=== PATIENT | male | born 1935 | race Caucasian/White ===

== ENCOUNTER 2018-06-26 12:19 | Inpatient (IN) ==
[2018-06-26 17:14] VITALS: BMI 30.4
[2018-06-26 18:21] LABS: BASOPHILS # (AUTO) 0.1 X10^3/uL (0.0-0.1); BASOPHILS % (AUTO) 0.8 % (0.2-1.0); EOSINOPHILS # (AUTO) 0.3 x10^3/uL (0.0-0.2); HEMATOCRIT 38.8 % (42.0-54.0); HEMOGLOBIN 12.7 g/dL (13.5-18.0); LYMPHOCYTES # (AUTO) 3.1 X10^3/uL (1.3-2.9); LYMPHOCYTES % (AUTO) 42.7 % (21.0-51.0); MEAN CORPUSCULAR HEMOGLOBIN 32.1 pg (27.0-34.0); MEAN CORPUSCULAR HGB CONC 32.8 g/dL (33.0-35.0); MEAN CORPUSCULAR VOLUME 97.9 fL (80.0-100.0); MEAN PLATELET VOLUME 8.6 fL (7.4-11.0); MONOCYTES # (AUTO) 0.7 x10^3/uL (0.3-0.8); MONOCYTES % (AUTO) 9.6 % (0.0-13.0); NEUTROPHILS # (AUTO) 3.1 x10^3/uL (2.2-4.8); NEUTROPHILS % (AUTO) 42.9 % (42.0-75.0); PLATELET COUNT 218 X10^3/uL (150.0-450.0); RED BLOOD COUNT 3.96 X10^6/uL (4.7-6.0); RED CELL DISTRIBUTION WIDTH 15.5 % (11.6-16.5); WHITE BLOOD COUNT 7.2 X10^3/uL (3.6-10.0)
--- NOTE | 2018-06-26 18:26 | RAD ---
HISTORY: Exposure to elements Study: Single view of the chest. Comparison: None. Findings: The cardiomediastinal silhouette is normal. No focal consolidations, pleural effusions or pneumothorax. Osseous structures demonstrate no acute abnormality. IMPRESSION: 1. No acute cardiopulmonary process. Reported By:
[2018-06-26 19:05] LABS: ALANINE AMINOTRANSFERASE 18 Units/L (12-78); ALBUMIN 3.3 g/dL (3.4-5.0); ALKALINE PHOSPHATASE 86 Units/L (46-116); ASPARTATE AMINO TRANSFERASE 28 Units/L (15-37); BLOOD UREA NITROGEN 28 mg/dL (7-18); CALCIUM 8.8 mg/dL (8.5-10.1); CARBON DIOXIDE 26.6 mmol/L (21-32); CHLORIDE 108 mmol/L (98-107); CKMB % 1.6 % (<4); COR CA(FOR HYPOALB) 9.4 mg/dL (8.5-10.1); COR NA(FOR HYPERGLY) 147 mmol/L (136-145); CREATINE KINASE 264 Units/L (39-308); CREATININE 1.41 mg/dL (0.70-1.30); SODIUM 143 mmol/L (136-145); TOTAL PROTEIN 6.9 g/dL (6.4-8.2); TROPONIN I 0.02 ng/mL (0-1.5); eGFR NON BLACK RACES 51 (>60)
[2018-06-26] MEDS: NS 1000 ML 1,000 ML IV SCH (19:09)
[2018-06-26 19:10] LABS: CREATINE KINASE MB 4.1 ng/mL (0-4.0)
[2018-06-26 21:11] LABS: BILIRUBIN,URINE NEGATIVE (NEGATIVE); BLOOD/HEMOGLOBIN,URINE 2+ (NEGATIVE); GLUCOSE, URINE 3+ (NEGATIVE); KETONES,URINE NEGATIVE (NEGATIVE); LEUKOCYTE ESTERASE ,URINE 3+ (NEGATIVE); NITRITES,URINE NEGATIVE (NEGATIVE); PROTEIN,URINE 3+ (NEGATIVE); UROBILINOGEN,URINE NORMAL (NORMAL)
[2018-06-26 21:16] LABS: APPEARANCE,URINE HAZY (CLEAR); COLOR,URINE YELLOW (YELLOW)
[2018-06-26 21:17] LABS: BACTERIA,URINE TRACE /HPF (NEGATIVE); SQUAMOUS EPITHELIAL CELL,UR FEW /HPF (NEGATIVE)
[2018-06-27 06:04] LABS: BASOPHILS % (AUTO) 0.6 % (0.2-1.0); EOSINOPHILS # (AUTO) 0.3 x10^3/uL (0.0-0.2); EOSINOPHILS % (AUTO) 4.2 % (0.9-2.9); HEMATOCRIT 37.7 % (42.0-54.0); HEMOGLOBIN 12.7 g/dL (13.5-18.0); LYMPHOCYTES # (AUTO) 3.2 X10^3/uL (1.3-2.9); LYMPHOCYTES % (AUTO) 42.4 % (21.0-51.0); MEAN CORPUSCULAR HEMOGLOBIN 32.6 pg (27.0-34.0); MEAN CORPUSCULAR HGB CONC 33.6 g/dL (33.0-35.0); MEAN CORPUSCULAR VOLUME 97.2 fL (80.0-100.0); MEAN PLATELET VOLUME 8.7 fL (7.4-11.0); MONOCYTES # (AUTO) 0.8 x10^3/uL (0.3-0.8); MONOCYTES % (AUTO) 10.2 % (0.0-13.0); NEUTROPHILS # (AUTO) 3.2 x10^3/uL (2.2-4.8); NEUTROPHILS % (AUTO) 42.6 % (42.0-75.0); PLATELET COUNT 210 X10^3/uL (150.0-450.0); RED BLOOD COUNT 3.88 X10^6/uL (4.7-6.0); RED CELL DISTRIBUTION WIDTH 15.2 % (11.6-16.5); WHITE BLOOD COUNT 7.4 X10^3/uL (3.6-10.0)
[2018-06-27 06:11] LABS: ALANINE AMINOTRANSFERASE 27 Units/L (12-78); ALBUMIN 3.2 g/dL (3.4-5.0); ALKALINE PHOSPHATASE 70 Units/L (46-116); ASPARTATE AMINO TRANSFERASE 28 Units/L (15-37); BLOOD UREA NITROGEN 27 mg/dL (7-18); CALCIUM 8.8 mg/dL (8.5-10.1); CARBON DIOXIDE 28.3 mmol/L (21-32); CHLORIDE 110 mmol/L (98-107); CKMB % 1.3 % (<4); COR CA(FOR HYPOALB) 9.4 mg/dL (8.5-10.1); COR NA(FOR HYPERGLY) 147 mmol/L (136-145); CREATINE KINASE 249 Units/L (39-308); CREATINE KINASE MB 3.2 ng/mL (0-4.0); CREATININE 1.33 mg/dL (0.70-1.30); SODIUM 146 mmol/L (136-145); TOTAL PROTEIN 6.7 g/dL (6.4-8.2); TROPONIN I 0.03 ng/mL (0-1.5); eGFR NON BLACK RACES 55 (>60)
[2018-06-27] MEDS: NS 1000 ML 1,000 ML IV SCH (06:13)
[2018-06-27] MEDS: ROCEPHIN VIAL 1 GRAM IVP SCH (10:57)
[2018-06-27] MEDS ORDERED: ULTRAM PO PRN (13:31)
[2018-06-27] MEDS ORDERED: CARBIDOPA LEVODOPA PO SCH (13:45)
[2018-06-27] MEDS: LOPRESSOR TAB 50 MG PO SCH ×2 (13:51→20:32)
[2018-06-27] MEDS: PriLOSEC PO SCH (13:54)
[2018-06-27] MEDS: FLOMAX PO SCH (13:54)
[2018-06-27] MEDS: TRICOR TAB 145 MG PO SCH (13:54)
[2018-06-27] MEDS: LYRICA CAP 75 MG PO SCH ×2 (13:54→20:32)
[2018-06-27] MEDS: CRESTOR TAB 10 MG PO SCH (13:54)
[2018-06-27] MEDS: CLARITIN PO SCH (13:54)
[2018-06-27] MEDS: SINEMET (PLAIN) 25/250 MG PO SCH ×2 (16:37→20:32)
[2018-06-27] MEDS ORDERED: NS 1/2 1000 ML IV 1,000 ML IV ONE (20:03)
[2018-06-27] MEDS: NS 1/2 1000 ML IV 1,000 ML IV SCH (20:31)
[2018-06-27] MEDS: ZYLOPRIM PO SCH (20:32)
[2018-06-27] MEDS: ARICEPT TAB 5 MG PO SCH (20:32)
[2018-06-27] MEDS: TRIHEXYPHENIDYL 2 MG PO SCH (20:32)
[2018-06-28 06:13] LABS: BASOPHILS % (AUTO) 0.5 % (0.2-1.0); EOSINOPHILS # (AUTO) 0.3 x10^3/uL (0.0-0.2); EOSINOPHILS % (AUTO) 5.7 % (0.9-2.9); HEMATOCRIT 34.6 % (42.0-54.0); HEMOGLOBIN 11.6 g/dL (13.5-18.0); LYMPHOCYTES # (AUTO) 2.3 X10^3/uL (1.3-2.9); LYMPHOCYTES % (AUTO) 39.6 % (21.0-51.0); MEAN CORPUSCULAR HEMOGLOBIN 32.5 pg (27.0-34.0); MEAN CORPUSCULAR HGB CONC 33.5 g/dL (33.0-35.0); MEAN CORPUSCULAR VOLUME 97.2 fL (80.0-100.0); MEAN PLATELET VOLUME 8.8 fL (7.4-11.0); MONOCYTES # (AUTO) 0.6 x10^3/uL (0.3-0.8); MONOCYTES % (AUTO) 10.6 % (0.0-13.0); NEUTROPHILS # (AUTO) 2.5 x10^3/uL (2.2-4.8); NEUTROPHILS % (AUTO) 43.6 % (42.0-75.0); PLATELET COUNT 196 X10^3/uL (150.0-450.0); RED BLOOD COUNT 3.56 X10^6/uL (4.7-6.0); RED CELL DISTRIBUTION WIDTH 15.5 % (11.6-16.5); WHITE BLOOD COUNT 5.8 X10^3/uL (3.6-10.0)
[2018-06-28 06:22] LABS: ALANINE AMINOTRANSFERASE 9 Units/L (12-78); ALBUMIN 2.8 g/dL (3.4-5.0); ALKALINE PHOSPHATASE 61 Units/L (46-116); ASPARTATE AMINO TRANSFERASE 28 Units/L (15-37); BLOOD UREA NITROGEN 24 mg/dL (7-18); CALCIUM 8.6 mg/dL (8.5-10.1); CARBON DIOXIDE 26.3 mmol/L (21-32); CHLORIDE 109 mmol/L (98-107); COR CA(FOR HYPOALB) 9.6 mg/dL (8.5-10.1); COR NA(FOR HYPERGLY) 146 mmol/L (136-145); SODIUM 144 mmol/L (136-145); TOTAL PROTEIN 6.1 g/dL (6.4-8.2); eGFR NON BLACK RACES > 60 (>60)
[2018-06-28] MEDS: PriLOSEC PO SCH (08:14)
[2018-06-28] MEDS: ROCEPHIN VIAL 1 GRAM IVP SCH (08:14)
[2018-06-28] MEDS: CRESTOR TAB 10 MG PO SCH (08:14)
[2018-06-28] MEDS: FLOMAX PO SCH (08:14)
[2018-06-28] MEDS: COLACE CAP 100 MG PO SCH (08:14)
[2018-06-28] MEDS: LOPRESSOR TAB 50 MG PO SCH ×2 (08:14→22:14)
[2018-06-28] MEDS: TRICOR TAB 145 MG PO SCH (08:15)
[2018-06-28] MEDS: CLARITIN PO SCH (08:15)
[2018-06-28] MEDS: SINEMET (PLAIN) 25/250 MG PO SCH ×4 (08:15→21:03)
[2018-06-28] MEDS: LYRICA CAP 75 MG PO SCH ×2 (08:15→21:02)
[2018-06-28] MEDS: ZYLOPRIM PO SCH ×2 (08:15→21:03)
[2018-06-28] MEDS ORDERED: ROTIGOTINE 1 MG Transdermal SCH (09:00)
--- NOTE | 2018-06-28 10:05 | DR.H&P ---
H&P - History & Physical for Day of: H&P Date: 06/26/18 - Chief Complaint Chief Complaint: Dementia, Wandered off during night, more confused - History of Present Illness History of Present Illness: The patient is an 83-year-old white male who presents to the office with his sister secondary to having wandered off during the night. States that she found them medicine about 3 AM and 911 was called. Deputies found him at 5 AM in a jacket and diaper with no shoes on. Has multiple ant bites to both feet. Patient has dementia. is currently hospitalized. Sister states that he has been more confused and restless. States it's getting to the point that there are no longer able to provide care for him safely. Patient does respond to simple commands. Discussed with sister placement options. - Past Medical History Past Medical History: Coronary Artery Disease, Dementia, Dyslipidemia - Past Surgical History Surgical History: CABG/Valve Surgery - Social History Does patient currently use any type of tobacco product: No Have you used tobacco products in the last 12 months: No Type of Tobacco Use: None Does any household member use tobacco: No Alcohol Use: None Drug Use: None - Medications Home Medications: mushroom Allergy (Verified 06/26/18 17:20) CONTINUE taking the following medications allopurinol [Zyloprim] 300 mg PO BID 06/26/18 [History] carbidopa-levodopa [Sinemet] 1 tab PO QID 06/26/18 [History] docusate sodium [DOK] 200 mg PO DAILY 06/26/18 [History] donepezil [Aricept] 5 mg PO HS 06/26/18 [History] fenofibrate nanocrystallized [Tricor] 145 mg PO DAILY 06/26/18 [History] loratadine [Claritin Liqui-Gel] 10 mg PO QDAY 06/26/18 [History] metoprolol tartrate [Lopressor] 50 mg PO BID 06/26/18 [History] omeprazole 40 mg PO DAILY 06/26/18 [History] pregabalin [Lyrica] 75 mg PO BID 06/26/18 [History] rosuvastatin [Crestor] 10 mg PO DAILY 06/26/18 [History] rotigotine [Neupro] 1 mg TRANSDERMAL DAILY 06/26/18 [History] tamsulosin [Flomax] 0.4 mg PO DAILY 06/26/18 [History] tramadol [Ultram] 50 mg PO Q6H PRN 06/26/18 [History] trihexyphenidyl 2 mg PO QID 06/26/18 [History] - Review of Systems Constitutional: See HPI, Malaise Eyes: No Symptoms Reported ENT: No Symptoms Reported Respiratory: No Symptoms Reported Cardiovascular: No Symptoms Reported Gastrointestinal: No Symptoms Reported Genitourinary: No Symptoms Reported Musculoskeletal: No Symptoms Reported Skin: Lesions (Bilateral feet with pustules) - Physical Exam Vital Signs: Temperature 98 F Pulse Rate [Left Radial] 52 Pulse Rate [Right Brachial] 62 Respiratory Rate 18 Blood Pressure [Left Arm] 182/77 Blood Pressure [Right Arm] 200/96 O2 Sat by Pulse Oximetry 94 Oriented: Person Eyes: Normal Ear: Normal Nose: Normal Throat: Normal Respiratory: Clear Throughout Cardiovascular: Normal : Normal Auscultation: Bowel Sounds: Normal Palpation: Normal Tenderness: Normal Skin: Pustular (Bilateral feet with pustules) Musculoskeletal: Normal Psychiatric: Other (dementia) Mood Description: Flat Affect: Flat Speech Pattern: Clear - Assessment/Plan (1) Dementia Qualifiers: Dementia type: Alzheimer's disease Status: Acute Plan: 1. Labs due to expiosure to elements and r/o Rhabdo/UTI (2) Weakness Status: Acute Plan: 1. Labs. 2. Gentle IV Hydration. - Allergies Allergies/Adverse Reactions: Allergies Allergy/AdvReac Type Severity Reaction Status Date / Time mushroom Allergy Verified 06/26/18 17:20
[2018-06-28 13:13] LABS: BILIRUBIN,URINE NEGATIVE (NEGATIVE); BLOOD/HEMOGLOBIN,URINE 1+ (NEGATIVE); GLUCOSE, URINE NEGATIVE (NEGATIVE); KETONES,URINE NEGATIVE (NEGATIVE); LEUKOCYTE ESTERASE ,URINE 2+ (NEGATIVE); NITRITES,URINE NEGATIVE (NEGATIVE); PROTEIN,URINE 3+ (NEGATIVE); UROBILINOGEN,URINE NORMAL (NORMAL)
[2018-06-28 13:19] LABS: APPEARANCE,URINE SLIGHTLY HAZY (CLEAR); COLOR,URINE YELLOW (YELLOW)
[2018-06-28 13:20] LABS: BACTERIA,URINE TRACE /HPF (NEGATIVE); SQUAMOUS EPITHELIAL CELL,UR FEW /HPF (NEGATIVE)
[2018-06-28] MEDS: TRIHEXYPHENIDYL 2 MG PO SCH ×4 (14:25→21:14)
[2018-06-28] MEDS: NS 1/2 1000 ML IV 1,000 ML IV SCH (16:27)
--- NOTE | 2018-06-28 18:53 | PCM.PROG ---
Progress Note - Progress Note for Day of Date of Exam: 06/27/18 - Subjective Subjective: 83 WM ADMITTED ON 06/26 WITH AMS, INCREASED WEAKNESS. PT HAS PMH OF HTN, OA, CAD, DM. PT HAD UTI ON ADMISSION, STARTED ON IV ROCEPHIN WITH CULTURES PENDING. PT FAMILY STATES HE IS MORE WEAK AND FAMILY WANTS PERMANENT [facility] PLACEMENT. PT'S SODIUM SLIGHTLY ELEVATED THIS AM, CHANGED IV FLUIDS TO 1/2 NS AT KVO. WILL REPEAT AM LABS. - Past Medical Family Social History Past Med/Fam/Surg Hx: No changes since H&P Allergies: Allergies mushroom Allergy (Verified 06/26/18 17:20) - Review of Systems ROS: No change since H&P - Vital Signs and I&O's Vital Signs: Temperature 98.6 F Pulse Rate [Left Radial] 60 Pulse Rate [Right Brachial] 62 Respiratory Rate 18 Blood Pressure [Left Arm] 145/67 Blood Pressure [Right Arm] 200/96 O2 Sat by Pulse Oximetry 94 Intake and Output: Intake & Output 06/26/18 06/27/18 06/28/18 06/29/18 11:59 11:59 11:59 11:59 Intake Total 568 / 568 1453 / 1453 850 / 850 Output Total 100 / 100 Balance 568 / 568 1453 / 1453 750 / 750 - Physical Exam Oriented: Person Eyes: Normal Ear: Normal Nose: Normal Throat: Normal Cardiovascular: Normal : Normal Auscultation: Bowel Sounds: Normal Tenderness: Normal Skin: Pustular (Bilateral feet with pustules) Musculoskeletal: Normal Psychiatric: Other (dementia) Mood Description: Flat Affect: Flat Speech Pattern: Clear - Laboratory and Diagnostics Result Diagrams: 06/28/18 04:50 06/28/18 04:50 Labs: 06/26/18 18:03 Blood Blood Culture - Preliminary 06/26/18 17:54 Blood Blood Culture - Preliminary 06/26/18 23:10 Urine,Clean Catch Urine Culture - Final Laboratory WBC 5.8 X10^3/uL (3.6-10.0) 06/28/18 04:50 RBC 3.56 X10^6/uL (4.7-6.0) L 06/28/18 04:50 Hgb 11.6 g/dL (13.5-18.0) L 06/28/18 04:50 Hct 34.6 % (42.0-54.0) L 06/28/18 04:50 MCV 97.2 fL (80.0-100.0) 06/28/18 04:50 MCH 32.5 pg (27.0-34.0) 06/28/18 04:50 MCHC 33.5 g/dL (33.0-35.0) 06/28/18 04:50 RDW 15.5 % (11.6-16.5) 06/28/18 04:50 Plt Count 196 X10^3/uL (150.0-450.0) 06/28/18 04:50 MPV 8.8 fL (7.4-11.0) 06/28/18 04:50 Neut % (Auto) 43.6 % (42.0-75.0) 06/28/18 04:50 Lymph % (Auto) 39.6 % (21.0-51.0) 06/28/18 04:50 [place] % (Auto) 10.6 % (0.0-13.0) 06/28/18 04:50 Eos % (Auto) 5.7 % (0.9-2.9) H 06/28/18 04:50 Baso % (Auto) 0.5 % (0.2-1.0) 06/28/18 04:50 Neut # (Auto) 2.5 x10^3/uL (2.2-4.8) 06/28/18 04:50 Lymph # (Auto) 2.3 X10^3/uL (1.3-2.9) 06/28/18 04:50 [place] # (Auto) 0.6 x10^3/uL (0.3-0.8) 06/28/18 04:50 Eos # (Auto) 0.3 x10^3/uL (0.0-0.2) H 06/28/18 04:50 Baso # (Auto) 0.0 X10^3/uL (0.0-0.1) 06/28/18 04:50 Absolute Nucleated RBC 0.1 /100WBC 06/28/18 04:50 Sodium 144 mmol/L (136-145) 06/28/18 04:50 Corrected Sodium 146 mmol/L (136-145) H 06/28/18 04:50 Potassium 3.8 mmol/L (3.5-5.1) 06/28/18 04:50 Chloride 109 mmol/L (98-107) H 06/28/18 04:50 Carbon Dioxide 26.3 mmol/L (21-32) 06/28/18 04:50 BUN 24 mg/dL (7-18) H 06/28/18 04:50 Creatinine 1.20 mg/dL (0.70-1.30) 06/28/18 04:50 Est GFR (MDRD) Af Amer > 60 (>60) 06/28/18 04:50 Est GFR (MDRD) Non-Af > 60 (>60) 06/28/18 04:50 Glucose 181 mg/dL (65-99) H 06/28/18 04:50 POC Glucose (mg/dL) 184 mg/dL (65-99) H 06/28/18 17:20 Hemoglobin A1c 7.2 % 06/27/18 05:16 Calcium 8.6 mg/dL (8.5-10.1) 06/28/18 04:50 Corrected Calcium 9.6 mg/dL (8.5-10.1) 06/28/18 04:50 Total Bilirubin 0.40 mg/dL (0.2-1.0) 06/28/18 04:50 AST 28 Units/L (15-37) 06/28/18 04:50 ALT 9 Units/L (12-78) L 06/28/18 04:50 Alkaline Phosphatase 61 Units/L (46-116) 06/28/18 04:50 Creatine Kinase 249 Units/L (39-308) 06/27/18 05:16 CK-MB (CK-2) 3.2 ng/mL (0-4.0) 06/27/18 05:16 CK/CKMB % Calc 1.3 % (<4) 06/27/18 05:16 Troponin I 0.03 ng/mL (0-1.5) 06/27/18 05:16 Total Protein 6.1 g/dL (6.4-8.2) L 06/28/18 04:50 Albumin 2.8 g/dL (3.4-5.0) L 06/28/18 04:50 Globulin 3.3 g/dL (2.5-4.5) 06/28/18 04:50 Albumin/Globulin Ratio 0.8 Ratio (1.1-2.1) L 06/28/18 04:50 Specimen Type Clean catch urine 06/28/18 13:05 Urine Color Yellow (YELLOW) 06/28/18 13:05 Urine Appearance Slightly hazy (CLEAR) 06/28/18 13:05 Urine pH 5.0 (5.0 - 8.0) 06/28/18 13:05 Ur Specific [place] 1.015 (1.000-1.030) 06/28/18 13:05 Urine Protein 3+ (NEGATIVE) 06/28/18 13:05 Urine Glucose (UA) Negative (NEGATIVE) 06/28/18 13:05 Urine Ketones Negative (NEGATIVE) 06/28/18 13:05 Urine Occult Blood 1+ (NEGATIVE) 06/28/18 13:05 Urine Nitrite Negative (NEGATIVE) 06/28/18 13:05 Urine Bilirubin Negative (NEGATIVE) 06/28/18 13:05 Urine Urobilinogen Normal (NORMAL) 06/28/18 13:05 Ur Leukocyte Esterase 2+ (NEGATIVE) 06/28/18 13:05 Urine RBC 5-10 /HPF (NONE SEEN) 06/28/18 13:05 Urine WBC 10-20 /HPF (NONE SEEN) 06/28/18 13:05 Ur Squamous Epith Cells Few /HPF (NEGATIVE) 06/28/18 13:05 Urine Bacteria Trace /HPF (NEGATIVE) 06/28/18 13:05 Ur Culture Indicated? Yes/culture set up 06/28/18 13:05 - Plan (1) UTI (urinary tract infection) Status: Acute Plan: IV ROCEPHIN, CULTURE PENDING. GENTLE IV HYDRATION. CONTINUE BP AND BLOOD SUGAR CONTROL (2) Hypertension Status: Acute (3) CAD (coronary artery disease) Status: Acute (4) Dementia Status: Acute Qualifiers: Dementia type: Alzheimer's disease Plan: 1. Labs due to expiosure to elements and r/o Rhabdo/UTI (5) Weakness Status: Acute Plan: 1. Labs. 2. Gentle IV Hydration.
[2018-06-28] MEDS: ARICEPT TAB 5 MG PO SCH (21:03)
[2018-06-29 06:14] LABS: BASOPHILS # (AUTO) 0.1 X10^3/uL (0.0-0.1); BASOPHILS % (AUTO) 0.9 % (0.2-1.0); EOSINOPHILS # (AUTO) 0.3 x10^3/uL (0.0-0.2); EOSINOPHILS % (AUTO) 3.9 % (0.9-2.9); HEMATOCRIT 35.4 % (42.0-54.0); HEMOGLOBIN 11.9 g/dL (13.5-18.0); LYMPHOCYTES # (AUTO) 2.3 X10^3/uL (1.3-2.9); LYMPHOCYTES % (AUTO) 35.3 % (21.0-51.0); MEAN CORPUSCULAR HEMOGLOBIN 32.5 pg (27.0-34.0); MEAN CORPUSCULAR HGB CONC 33.5 g/dL (33.0-35.0); MEAN PLATELET VOLUME 9.2 fL (7.4-11.0); MONOCYTES # (AUTO) 0.6 x10^3/uL (0.3-0.8); MONOCYTES % (AUTO) 9.3 % (0.0-13.0); NEUTROPHILS # (AUTO) 3.4 x10^3/uL (2.2-4.8); NEUTROPHILS % (AUTO) 50.6 % (42.0-75.0); PLATELET COUNT 204 X10^3/uL (150.0-450.0); RED BLOOD COUNT 3.65 X10^6/uL (4.7-6.0); RED CELL DISTRIBUTION WIDTH 14.8 % (11.6-16.5); WHITE BLOOD COUNT 6.6 X10^3/uL (3.6-10.0)
[2018-06-29 06:16] LABS: ALBUMIN 2.9 g/dL (3.4-5.0); ALKALINE PHOSPHATASE 66 Units/L (46-116); ASPARTATE AMINO TRANSFERASE 34 Units/L (15-37); BLOOD UREA NITROGEN 24 mg/dL (7-18); CALCIUM 8.6 mg/dL (8.5-10.1); CARBON DIOXIDE 23.6 mmol/L (21-32); CHLORIDE 107 mmol/L (98-107); COR CA(FOR HYPOALB) 9.5 mg/dL (8.5-10.1); COR NA(FOR HYPERGLY) 143 mmol/L (136-145); CREATININE 1.21 mg/dL (0.70-1.30); SODIUM 141 mmol/L (136-145); TOTAL PROTEIN 6.2 g/dL (6.4-8.2); eGFR NON BLACK RACES > 60 (>60)
[2018-06-29 06:25] LABS: ALANINE AMINOTRANSFERASE 7 Units/L (12-78)
[2018-06-29] MEDS: CRESTOR TAB 10 MG PO SCH (09:43)
[2018-06-29] MEDS: FLOMAX PO SCH (09:43)
[2018-06-29] MEDS: CLARITIN PO SCH (09:43)
[2018-06-29] MEDS: LOPRESSOR TAB 50 MG PO SCH ×2 (09:43→20:51)
[2018-06-29] MEDS: PriLOSEC PO SCH (09:43)
[2018-06-29] MEDS: ZYLOPRIM PO SCH ×2 (09:43→20:52)
[2018-06-29] MEDS: SINEMET (PLAIN) 25/250 MG PO SCH ×4 (09:43→20:52)
[2018-06-29] MEDS: TRICOR TAB 145 MG PO SCH (09:43)
[2018-06-29] MEDS: COLACE CAP 100 MG PO SCH (09:44)
[2018-06-29] MEDS: LYRICA CAP 75 MG PO SCH ×2 (09:44→20:58)
[2018-06-29] MEDS: TRIHEXYPHENIDYL 2 MG PO SCH ×4 (09:45→20:53)
[2018-06-29] MEDS: ROCEPHIN VIAL 1 GRAM IVP SCH (09:45)
[2018-06-29] MEDS: NS 1/2 1000 ML IV 1,000 ML IV SCH (13:12)
[2018-06-29] MEDS: LOVENOX INJ 40 MG SYR SC SCH (16:21)
[2018-06-29] MEDS: ARICEPT TAB 5 MG PO SCH (20:53)
[2018-06-29] MEDS: HumuLIN R SUBCUT PRN (21:53)
[2018-06-30 05:26] LABS: BASOPHILS % (AUTO) 0.8 % (0.2-1.0); EOSINOPHILS # (AUTO) 0.3 x10^3/uL (0.0-0.2); EOSINOPHILS % (AUTO) 5.4 % (0.9-2.9); HEMATOCRIT 37.3 % (42.0-54.0); HEMOGLOBIN 12.3 g/dL (13.5-18.0); LYMPHOCYTES # (AUTO) 2.7 X10^3/uL (1.3-2.9); LYMPHOCYTES % (AUTO) 42.9 % (21.0-51.0); MEAN CORPUSCULAR HEMOGLOBIN 32.6 pg (27.0-34.0); MEAN CORPUSCULAR VOLUME 98.5 fL (80.0-100.0); MEAN PLATELET VOLUME 8.7 fL (7.4-11.0); MONOCYTES # (AUTO) 0.7 x10^3/uL (0.3-0.8); MONOCYTES % (AUTO) 11.6 % (0.0-13.0); NEUTROPHILS # (AUTO) 2.5 x10^3/uL (2.2-4.8); NEUTROPHILS % (AUTO) 39.3 % (42.0-75.0); PLATELET COUNT 203 X10^3/uL (150.0-450.0); RED BLOOD COUNT 3.79 X10^6/uL (4.7-6.0); WHITE BLOOD COUNT 6.4 X10^3/uL (3.6-10.0)
[2018-06-30 05:41] LABS: ALANINE AMINOTRANSFERASE 11 Units/L (12-78); ALKALINE PHOSPHATASE 72 Units/L (46-116); ASPARTATE AMINO TRANSFERASE 36 Units/L (15-37); BLOOD UREA NITROGEN 27 mg/dL (7-18); CALCIUM 8.7 mg/dL (8.5-10.1); CARBON DIOXIDE 27.7 mmol/L (21-32); CHLORIDE 108 mmol/L (98-107); COR CA(FOR HYPOALB) 9.5 mg/dL (8.5-10.1); COR NA(FOR HYPERGLY) 144 mmol/L (136-145); CREATININE 1.25 mg/dL (0.70-1.30); SODIUM 142 mmol/L (136-145); TOTAL PROTEIN 6.3 g/dL (6.4-8.2); eGFR NON BLACK RACES 59 (>60)
[2018-06-30] MEDS: ROCEPHIN VIAL 1 GRAM IVP SCH (08:27)
[2018-06-30] MEDS: SINEMET (PLAIN) 25/250 MG PO SCH ×2 (08:27→13:01)
[2018-06-30] MEDS: CLARITIN PO SCH (08:27)
[2018-06-30] MEDS: COLACE CAP 100 MG PO SCH (08:27)
[2018-06-30] MEDS: TRICOR TAB 145 MG PO SCH (08:27)
[2018-06-30] MEDS: LYRICA CAP 75 MG PO SCH (08:27)
[2018-06-30] MEDS: LOPRESSOR TAB 50 MG PO SCH (08:27)
[2018-06-30] MEDS: LOVENOX INJ 40 MG SYR SC SCH (08:27)
[2018-06-30] MEDS: ZYLOPRIM PO SCH (08:27)
[2018-06-30] MEDS: CRESTOR TAB 10 MG PO SCH (08:27)
[2018-06-30] MEDS: PriLOSEC PO SCH (08:28)
[2018-06-30] MEDS: FLOMAX PO SCH (08:28)
[2018-06-30] MEDS: TRIHEXYPHENIDYL 2 MG PO SCH ×2 (08:30→13:01)
[2018-06-30] MEDS: HumuLIN R SUBCUT PRN (11:57)
[2018-06-30 12:47] VITALS: BP 154/68
[2018-06-30] MEDS ORDERED: SNACK - Diabetic Appropriate PO SCH (20:00)
== END 2018-06-30 13:40 | DRG 690 ==
LOC: MED/SURG
PROVIDERS: ADMIT Internal Medicine; ATTEND Internal Medicine
DX: I25.10 Atherosclerotic heart disease of native coronary artery without angina pectoris; R26.89 Other abnormalities of gait and mobility; E11.65 Type 2 diabetes mellitus with hyperglycemia; E78.2 Mixed hyperlipidemia; E87.0 Hyperosmolality and hypernatremia; F03.90 Unspecified dementia, unspecified severity, without behavioral disturbance, psychotic disturbance, mood disturbance, and anxiety; Z79.899 Other long term (current) drug therapy; M19.90 Unspecified osteoarthritis, unspecified site; R53.1 Weakness; I10 Essential (primary) hypertension; N39.0 Urinary tract infection, site not specified; R41.82 Altered mental status, unspecified
CPT/HCPCS: 36415; 71010; 71045; 80053; 81001; 82550; 82553; 83036; 84484; 85025; 87040; 87086; 93005; 97110; 97162; 97167; 97530; 97535; A4216; A4222; G0378; J0696; J1650; J1815; J7030